=== PATIENT | female | born 1945 | race Caucasian/White ===

== ENCOUNTER 2018-11-12 13:46 | Emergency (ER) | payer MEDICARE, BC ==
[~2018-11-12] VITALS: Ht 167.6 cm; Wt 77.0 kg
[2018-11-12] MEDS ORDERED: normal saline 1000ML IV soln IV ONE (14:05)
[2018-11-12 14:28] LABS: BASOPHILS % (AUTO) 0.4 % (0-1); EOSINOPHILS % (AUTO) 1.1 % (0-6); HEMATOCRIT 43.3 % (35.0-45.0); HEMOGLOBIN 14.5 g/dl (12.0-16.0); LYMPHOCYTES # (AUTO) 0.9 X10'3 (1.1-4.8); LYMPHOCYTES % (AUTO) 22.8 % (21-51); MEAN CORPUSCULAR HEMOGLOBIN 31.2 PG (27.0-31.0); MEAN CORPUSCULAR HGB CONC 33.4 % (33.0-36.5); MEAN CORPUSCULAR VOLUME 93.3 FL (78-98); MEAN PLATELET VOLUME 8.8 FL (7.4-10.4); MONOCYTES # (AUTO) 0.4 X10'3 (0-0.9); MONOCYTES % (AUTO) 11.1 % (2-12); NEUTROPHILS # (AUTO) 2.4 X10'3 (1.8-7.7); NEUTROPHILS % (AUTO) 64.6 % (42-75); PLATELET COUNT 177 X10'3 (140-440); RED BLOOD COUNT 4.64 X10'6 (4.20-5.60); WHITE BLOOD COUNT 3.8 X10'3 (4.5-11.0)
[2018-11-12 14:53] LABS: ALANINE AMINOTRANSFERASE 26 U/L (12-78); ALBUMIN 3.5 G/DL (3.4-5.0); ALBUMIN/GLOBULIN RATIO 0.9 (1.1-1.5); ALKALINE PHOSPHATASE 72 IU/L (46-116); ANION GAP 11 (8-16); ASPARTATE AMINO TRANSFERASE 37 U/L (10-37); BILIRUBIN,TOTAL 0.7 MG/DL (0.1-1.0); BLOOD UREA NITROGEN 22 MG/DL (7-18); BUN/CREATININE RATIO 25.9 (6.6-38.0); CALCIUM 8.9 MG/DL (8.5-10.1); CHLORIDE 101 MMOL/L (99-107); CREATININE 0.85 MG/DL (0.40-0.90); GLUCOSE 103 MG/DL (70-104); MAGNESIUM 1.9 MG/DL (1.5-2.4); POTASSIUM 3.7 MMOL/L (3.5-5.1); SODIUM 139 MMOL/L (135-145); TOTAL CARBON DIOXIDE 27.5 MMOL/L (24-32); TOTAL PROTEIN 7.5 G/DL (6.4-8.2); eGFR 66 ML/MIN
[2018-11-12 15:05] LABS: CLARITY,URINE CLEAR (Clear); GLUCOSE, URINE NEGATIVE (Neg); KETONES,URINE TRACE mg/dl (Neg); LEUKOCYTE ESTERASE ,URINE NEGATIVE (Neg); NITRITES, URINE NEGATIVE (Neg); OCCULT BLOOD,URINE NEGATIVE (Neg); PROTEIN,URINE 30 mg/dl (Neg); UROBILINOGEN,URINE 0.2 E.U/dL (0.2-1.0)
[2018-11-12 15:06] LABS: COLOR,URINE DARK YELLOW (Yellow); UA COLLECTION TYPE STRAIGHT CATH
[2018-11-12] MEDS ORDERED: vancomycin 125mg/5ml ORAL solution 5ml UD bottle PO STA (15:08)
[2018-11-12] MEDS ORDERED: CefTRIAXone 2gm/D5W 50ml 50 ML IV ONE (15:10)
[2018-11-12 15:13] LABS: BACTERIA,URINE NONE SEEN /HPF (Neg); COARSE GRANULAR CAST 0-3 /LPF (NEGATIVE); HYALINE CASTS 0-3 /LPF (NEGATIVE); MUCUS STRANDS MODERATE /LPF (Neg); RBC,URINE NONE SEEN /HPF (0-2); SQUAMOUS EPITHELIAL CELL,UR NONE SEEN /LPF (FEW); TRANSITIONAL EPI CELLS,URINE FEW /HPF; WBC,URINE 0-4 /HPF (0-4)
[2018-11-12 15:18] LABS: PARTIAL THROMBOPLASTIN TIME 28 SECONDS (22-32); PROTHROMBIN TIME 10.1 SECONDS (9.0-12.0)
[2018-11-12 17:43] VITALS: BP 174/95
== END 2018-11-12 17:11 | disposition home or self-care (01) ==
LOC: ER 13:47
DX: R19.7 Diarrhea, unspecified (principal); F03.90 Unspecified dementia, unspecified severity, without behavioral disturbance, psychotic disturbance, mood disturbance, and anxiety; R50.9 Fever, unspecified; R53.83 Other fatigue; Z88.8 Allergy status to other drugs, medicaments and biological substances
CPT/HCPCS: 36415; 71045; 80053; 81001; 83605; 83735; 84145; 85025; 85610; 85730; 87040; 87077; 87502; 87503; 93005; 99284; J7030; P9612

== ENCOUNTER 2021-06-13 13:59 | Emergency (ER) | payer MEDICARE, BC ==
[~2021-06-13] VITALS: Ht 167.6 cm; Wt 77.0 kg
[2021-06-13] MEDS ORDERED: triamcinolone acetonide 40mg/ml inj IM ONE (14:10)
[2021-06-13] MEDS ORDERED: TRIA15CR61 TP (15:56)
[2021-06-13] MEDS ORDERED: METH4TAB81 PO (15:56)
--- NOTE | 2021-06-13 16:13 | NUR ---
PT IS RESTING QUIETLY ON GURNEY, RESP EVEN AND UNLABORED, REPORT GIVEN TO PETRONA COYLE AT [facility]
--- NOTE | 2021-06-13 16:15 | NUR ---
[facility] WILL CONTACT [facility] TO TRANSPORT PT BACK TO [place]
[2021-06-13 17:22] VITALS: BP 149/63
== END 2021-06-13 17:25 | disposition home or self-care (01) ==
LOC: ER 14:00
DX: T78.1XXA Other adverse food reactions, not elsewhere classified, initial encounter (principal); L27.2 Dermatitis due to ingested food; F03.90 Unspecified dementia, unspecified severity, without behavioral disturbance, psychotic disturbance, mood disturbance, and anxiety; Z79.899 Other long term (current) drug therapy; X58.XXXA Exposure to other specified factors, initial encounter
CPT/HCPCS: 96372; 99284; J3301